=== PATIENT | male | born 1960 | race Two or more races ===

== ENCOUNTER 2019-03-21 23:59 | Inpatient (IN) | payer OTHER ==
[~2019-03-21] VITALS: Ht 165.1 cm; Wt 73.9 kg
[2019-03-22] VITALS (11 sets, daily range): BP systolic 115–185; BP diastolic 51–82
--- NOTE | 2019-03-22 00:36 | Emergency Room Report ---
History of Present Illness General Chief Complaint: Overdose Source: Patient (Jakob Mack MD) Present Illness HPI This is a 58-year-old male with a history of high blood pressure, diabetes, renal failure on hemodialysis. He presents with chief complaint of suicidal and overdose. He said that his phone depressed because he has some marital problem with his . Around 2 PM, 10 hours prior to arrival, he took 20 tablets of rat poison. He went to his sister house around 5 PM and did not see anything to her until almost 11 PM. Family didn't call 911. Patient feeling depressed. Denies any alcohol drugs. Denies any nausea vomiting. Denies any bleeding. No pain. Never done this before. (Jakob Mack MD) Allergies: Coded Allergies: No Known Allergies (Unverified , 03/22/19) Patient History Past Medical History: see triage record, old chart reviewed, DM, HTN, dialysis Past Surgical History: other Pertinent Family History: none Social History: Denies: smoking Immunizations: other Reviewed Nursing Documentation: PMH: Agreed; PSxH: Agreed (Jakob Mack MD) Nursing Documentation-PMH Past Medical History: No History, Except For Hx Hypertension: Yes Hx Diabetes: Yes (Jakob Mack MD) Review of Systems Eye: Denies: eye pain, blurred vision ENT: Denies: ear pain, nose congestion, throat swelling Respiratory: Denies: cough, shortness of breath Cardiovascular: Denies: chest pain, palpitations Gastrointestinal: Denies: abdominal pain, diarrhea, nausea, vomiting Musculoskeletal: Denies: back pain, joint pain Skin: Denies: rash Psychiatric: Reports: depressed feelings Neurological: Denies: headache, numbness Endocrine: Denies: increased thirst, increased urine Hematologic/Lymphatic: Denies: easy bruising All Other Systems: negative except mentioned in HPI (Jakob Mack MD) Physical Exam Vital Signs Date Time Temp Pulse Resp B/P (MAP) Pulse Ox O2 Delivery O2 Flow Rate FiO2 03/21/19 23:57 98.2 92 18 196/97 (130) 98 Room Air vitals with high blood pressure Sp02 EP Interpretation: reviewed, normal General Appearance: well appearing, no apparent distress, alert Head: normocephalic, atraumatic Eyes: bilateral eye PERRL, bilateral eye EOMI ENT: hearing grossly normal, normal pharynx Neck: full range of motion, supple, no meningismus Respiratory: chest non-tender, lungs clear, normal breath sounds, other - Dialysis catheter on right upper chest Cardiovascular #1: regular rate, rhythm, no murmur Gastrointestinal: normal bowel sounds, non tender, no mass, no organomegaly, no bruit, non-distended Musculoskeletal: back normal, gait/station normal, normal range of motion Psychiatric: depressed affect Skin: warm/dry (Jakob Mack MD) Medical Decision Making Diagnostic Impression: Primary Impression: Drug overdose Qualified Codes: T50.902A - Poisoning by unspecified drugs, medicaments and biological substances, intentional self-harm, initial encounter Additional Impressions: Suicidal intent Hypertension Qualified Codes: I10 - Essential (primary) hypertension ER Course Pt presents with OD on rat poison. 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 no e/o hypocoaguable state. BP was high initially but normalized after meds given. he is resting comfortably. he is medically cleared for psych evaluation. Lab Results Impression labs with chronic renal failure. Potassium unremarkable. (Jakob Mack MD) ER Course Please see above note. Discussed with Dr. Hoff - patient presented. He is contacting Dr. Onofre. Contacted Dr. Garcia for consultation. CXR as below. Patient NAD. (Raphael Xiao MD) EKG Diagnostic Results Rate: normal Rhythm: NSR ST Segments: no acute changes ASA given to the pt in ED: No (Jakob Mack MD) Rhythm Strip Diag. Results EP Interpretation: yes Rate: 84 Rhythm: NSR, no PVC's, no ectopy (Jakob Mack MD) EP Interpretation: yes Rhythm: NSR, no PVC's, no ectopy (Raphael Xiao MD) Chest X-Ray Diagnostic Results Chest X-Ray Diagnostic Results : Chest X-Ray Ordered: Yes # of Views/Limited/Complete: 1 View Indication: Other EP Interpretation: Yes Interpretation: no consolidation, no effusion, no pneumothorax, other - vascath R, inc cor, mild congestion Impression: Other Electronically Signed by: Electronically signed by Raphael Xiao MD (Raphael Xiao MD) Last Vital Signs Date Time Temp Pulse Resp B/P (MAP) Pulse Ox O2 Delivery O2 Flow Rate FiO2 03/21/19 23:57 98.2 92 18 196/97 (130) 98 Room Air Status: improved (Jakob Mack MD) Disposition: ADMITTED INPATIENT Condition: Serious Jakob Mack MD Mar 22, 2019 00:36 Raphael Xiao MD Mar 22, 2019 12:02
[2019-03-22 00:47] LABS: BASOPHILS % (AUTO) 0.7 % (0.0-2.0); EOSINOPHILS % (AUTO) 2.9 % (0.0-3.0); HEMATOCRIT 38.8 % (42.0-52.0); HEMOGLOBIN 12.6 G/DL (14.2-18.0); LYMPHOCYTES % (AUTO) 13.9 % (20.0-45.0); MEAN CORPUSCULAR VOLUME 90 FL (80-99); MONOCYTES % (AUTO) 6.8 % (1.0-10.0); NEUTROPHILS % (AUTO) 75.7 % (45.0-75.0); PLATELET COUNT 186 K/UL (150-450); RED CELL DISTRIBUTION WIDTH 13.7 % (11.6-14.8); WHITE BLOOD COUNT 9.1 K/UL (4.8-10.8)
[2019-03-22 00:49] LABS: ANION GAP 13 mmol/L (5-15); BLOOD UREA NITROGEN 89 mg/dL (7-18); CALCIUM 8.4 MG/DL (8.5-10.1); CARBON DIOXIDE 22 MMOL/L (21-32); CHLORIDE 100 MMOL/L (98-107); CREATININE 9.8 MG/DL (0.55-1.30); SODIUM 135 MMOL/L (136-145)
[2019-03-22 00:53] LABS: ALANINE AMINOTRANSFERASE 28 U/L (12-78); ALBUMIN 3.7 G/DL (3.4-5.0); ALKALINE PHOSPHATASE 138 U/L (46-116); ASPARTATE AMINO TRANSFERASE 21 U/L (15-37); BILIRUBIN,TOTAL 0.6 MG/DL (0.2-1.0)
[2019-03-22 01:28] LABS: APPEARANCE,URINE CLEAR; BILIRUBIN, URINE NEGATIVE (NEGATIVE); COLOR,URINE PALE YELLOW; GLUCOSE, URINE (UA) 2+ (NEGATIVE); KETONES,URINE NEGATIVE (NEGATIVE); LEUKOCYTE ESTERASE ,URINE NEGATIVE (NEGATIVE); NITRITE,URINE NEGATIVE (NEGATIVE); PH,URINE 5 (4.5-8.0); PROTEIN,URINE 4+ (NEGATIVE); UROBILINOGEN,URINE NORMAL MG/DL (0.0-1.0)
--- NOTE | 2019-03-22 10:52 | Diagnostic Imaging Report ---
EXAM: XR Chest, 1 View CLINICAL HISTORY: ALOC TECHNIQUE: Frontal view of the chest. COMPARISON: No relevant prior studies available. FINDINGS: Lungs: Unremarkable. The lungs appear clear. No focal consolidation. Pleural space: Unremarkable. The costophrenic angles are sharp. No visible pneumothorax. Heart: Unremarkable. No cardiomegaly. Mediastinum: Unremarkable. Bones/joints: Unremarkable. Tubes, lines and devices: Right subclavian-approach dialysis catheter with the tip in the region of the SVC. Telemetry leads overlie the thorax. IMPRESSION: No acute findings.
--- NOTE | 2019-03-22 14:14 | History & Physical ---
History and Physical History & Physicial History and Physical HPI Patient is a 58-year-old male with a history of high blood pressure, diabetes, chronic renal failure on hemodialysis. He presents with chief complaint of suicidal ideation and overdose. Had felt depresse, 10 hours prior to arrival, he took 20 tablets of rat poison. Denies any alcohol drugs. Denies any nausea vomiting. Denies any bleeding. No pain. Never done this before. Allergies: No Known Allergies Past Medical History: Hypertension, Diabetes, Chronic renal failure on hemodialysis Social History: Denies: smoking Immunizations: other ROS: Negative aside from above Physical Exam Vital Signs Noted Date Time Temp Pulse Resp B/P (MAP) Pulse Ox O2 Delivery O2 Flow Rate FiO2 03/21/19 23:57 98.2 92 18 196/97 (130) 98 Room Air General Appearance: well appearing, no apparent distress, alert Head: normocephalic, atraumatic Eyes: bilateral eye PERRL, bilateral eye EOMI ENT: hearing grossly normal, normal pharynx Neck: full range of motion, supple, no meningismus Respiratory: chest non-tender, lungs clear, normal breath sounds, other - Dialysis catheter on right upper chest Cardiovascular: HS1, HS2, regular rate, rhythm, no murmur Gastrointestinal: normal bowel sounds, non tender, no mass, no organomegaly, no bruit, non-distended Musculoskeletal: back normal, gait/station normal, normal range of motion Psychiatric: depressed affect Skin: warm/dry Impression: Drug overdose - apparently took rat poison Suicidal ideation Hypertension Diabetes Chronic renal failure on hemodialysis Plan: Admit Telemetry Sitter Bed rest Psych evaluation. 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
[2019-03-22] MEDS ORDERED: HydrALAZINE 25mg tab ORAL PRN (14:15)
[2019-03-22] MEDS ORDERED: Activated Charcoal 50gm/240ml Btl ORAL ONE (15:00)
[2019-03-22] MEDS ORDERED: Sorbitol Solution UD 30ml ORAL SCH (17:30)
[2019-03-22] MEDS: NovoLOG Insulin Flexpen SUBQ SCH ×2 (17:42→20:52)
[2019-03-22] MEDS: Heparin 5000 units/ml inj SUBQ SCH (20:53)
--- NOTE | 2019-03-22 22:15 | Consultation ---
DATE OF CONSULTATION: 03/22/2019 NEPHROLOGY CONSULTATION CONSULTING PHYSICIAN: Jessica Onofre M.D. ATTENDING PHYSICIAN: Daljit Umanzor M.D. REASON FOR CONSULTATION: This is a dialysis patient. HISTORY OF PRESENT ILLNESS: This is a 58-year-old male who is on dialysis every Saturday, , and Saturday. The patient dialyzes in the [facility] unit on [place]. His last dialysis was last . He missed his dialysis yesterday. The patient has a history of depression. Apparently, the patient overdosed on an unknown poison. He took about 20 tablets of the poison. That happened yesterday at about 5 p.m. The patient denies any symptoms. PAST MEDICAL HISTORY: 1. End-stage renal failure secondary to diabetic nephropathy. 2. Type 2 diabetes mellitus. 3. Hypertensive cardiovascular disease. 4. Depression. MEDICATIONS: Currently unknown. ALLERGIES: No known allergies. FAMILY HISTORY: Unremarkable. REVIEW OF SYSTEMS: HEENT: Hearing and eyesight are normal. ENDOCRINE: Significant for type 2 diabetes mellitus. RESPIRATORY: Denies shortness of breath, cough, or hemoptysis. CARDIAC: He denies chest pain or palpitations. GASTROINTESTINAL: No history of hematochezia, melena, hematemesis, diarrhea, or constipation. GENITOURINARY: He denies dysuria, frequency, urgency, or hematuria. NEUROLOGIC: No history of stroke, syncope, or Parkinson disease. PSYCHIATRIC: Significant for history of depression. PHYSICAL EXAMINATION: GENERAL: This is an elderly male who is in no acute distress. VITAL SIGNS: Blood pressure 156/78, pulse 90 and regular, respirations 15, and temperature 98, oral. HEENT: The head is normocephalic and atraumatic. Pupils are equal, round, and reactive to light and accommodation consensually. NECK: Supple. He has right internal jugular PermCath. LUNGS: Clear to auscultation and percussion. HEART: Regular rate and rhythm without rubs, murmurs, or gallops. ABDOMEN: Soft and nontender. Bowel sounds were active. EXTREMITIES: No clubbing, cyanosis, or edema. NEUROLOGICAL: He is alert and oriented x4. Cranial nerves II through XII intact. LABORATORY AND ANCILLARY DATA: Chemistries, sodium 135, potassium 5, BUN 89, and creatinine 9.8. LFTs within normal limits except alkaline phosphatase of 138. INR 1. CBC, hemoglobin 12.6, otherwise within normal limits. Chest x-ray, no acute disease. ASSESSMENT: 1. End-stage renal failure secondary to diabetic nephropathy. 2. Type 2 diabetes mellitus. 3. Hypertensive cardiovascular disease. 4. Depression. 5. Overdose of Rat poison, the nature of which is unknown, rule out dicoumarol poisoning. PLAN: 1. Hemodialysis today, non-urgent. The patient missed his dialysis. 2. Monitor the patient's coagulation function as he may be bound to side effects from Rat poison dicoumarol. Jessica Onofre M.D. DR: CARLOS JOB#: [id number] CC: EDWIN
[2019-03-23] VITALS: BP 120/63
[2019-03-23 04:00] VITALS: BP 142/65
[2019-03-23] MEDS: NovoLOG Insulin Flexpen SUBQ SCH ×4 (06:07→20:30)
[2019-03-23 06:51] LABS: EOSINOPHILS % (AUTO) 6.8 % (0.0-3.0); HEMATOCRIT 35.3 % (42.0-52.0); HEMOGLOBIN 11.4 G/DL (14.2-18.0); LYMPHOCYTES % (AUTO) 20.6 % (20.0-45.0); MEAN CORPUSCULAR VOLUME 91 FL (80-99); MONOCYTES % (AUTO) 6.8 % (1.0-10.0); NEUTROPHILS % (AUTO) 64.9 % (45.0-75.0); PLATELET COUNT 170 K/UL (150-450); RED BLOOD COUNT 3.88 M/UL (4.70-6.10); RED CELL DISTRIBUTION WIDTH 13.9 % (11.6-14.8); WHITE BLOOD COUNT 6.7 K/UL (4.8-10.8)
[2019-03-23 07:12] LABS: ANION GAP 10 mmol/L (5-15); BLOOD UREA NITROGEN 71 mg/dL (7-18); CALCIUM 8.2 MG/DL (8.5-10.1); CARBON DIOXIDE 26 MMOL/L (21-32); CHLORIDE 98 MMOL/L (98-107); CREATININE 7.9 MG/DL (0.55-1.30); SODIUM 134 MMOL/L (136-145)
[2019-03-23 08:00] VITALS: BP 150/79
[2019-03-23] MEDS: Heparin 5000 units/ml inj SUBQ SCH ×2 (08:31→20:29)
--- NOTE | 2019-03-23 10:17 | Nephrology Progress Note ---
Assessment/Plan Plan ESRD - HD today OD - "Rat Poison" m/p not dicumarol. INR flat. Subjective Subjective No new c/o Objective Objective Last 24 Hour Vital Signs Date Time Temp Pulse Resp B/P (MAP) Pulse Ox O2 Delivery O2 Flow Rate FiO2 03/23/19 09:00 Room Air 03/23/19 08:30 82 150/79 03/23/19 08:00 97.9 82 18 150/79 (102) 98 03/23/19 04:00 98.6 80 18 142/65 (90) 100 03/23/19 03:57 82 03/23/19 00:00 77 03/23/19 00:00 98.2 82 16 120/63 (82) 97 03/22/19 21:00 Room Air 03/22/19 20:00 97.9 83 18 143/73 (96) 96 03/22/19 16:00 74 03/22/19 16:00 98.0 79 21 144/73 (96) 99 79 03/22/19 12:51 Room Air 03/22/19 12:45 96.8 70 21 134/76 (95) 97 70 03/22/19 12:40 73 03/22/19 12:24 98.2 87 18 131/78 99 Room Air 03/22/19 10:30 98.0 90 15 156/78 98 Room Air Intake and Output 03/22/19 03/23/19 18:59 06:59 Intake Total 200 ml 240 ml Output Total 100 ml 2600 ml Balance 100 ml -2360 ml Intake Oral 240 ml Other 200 ml Output Urine Total 100 ml Hemodialysis UF 2600 ml Laboratory Tests 03/23/19 05:05: White Blood Count 6.7, Red Blood Count 3.88L, Hemoglobin 11.4L, Hematocrit 35.3L , Mean Corpuscular Volume 91, Mean Corpuscular Hemoglobin 29.3, Mean Corpuscular Hemoglobin Concent 32.2, Red Cell Distribution Width 13.9, Platelet Count 170, Mean Platelet Volume 6.8, Neutrophils (%) (Auto) 64.9, Lymphocytes (% ) (Auto) 20.6, Monocytes (%) (Auto) 6.8, Eosinophils (%) (Auto) 6.8H, Basophils (%) (Auto) 1.0, Prothrombin Time 10.2, Prothromb Time International Ratio 1.0, Sodium Level 134L, Potassium Level 5.0, Chloride Level 98, Carbon Dioxide Level 26, Anion Gap 10, Blood Urea Nitrogen 71H, Creatinine 7.9H, Estimat Glomerular Filtration Rate 7.1, Glucose Level 112H, Calcium Level 8.2L Height (Feet): 5 Height (Inches): 5.00 Weight (Pounds): 168 Objective CV RR Lungs CTA Abd SNT. BS + E No CCE Jessica Onofre MD Mar 23, 2019 10:17
--- NOTE | 2019-03-23 10:27 | Nephrology Progress Note ---
Assessment/Plan Plan ESRD - HD done yesterday. UF 2.6 L. OD - "Rat Poison" m/p not dicumarol. INR flat. Subjective Subjective No new c/o Objective Objective Last 24 Hour Vital Signs Date Time Temp Pulse Resp B/P (MAP) Pulse Ox O2 Delivery O2 Flow Rate FiO2 03/23/19 09:00 Room Air 03/23/19 08:30 82 150/79 03/23/19 08:00 97.9 82 18 150/79 (102) 98 03/23/19 08:00 82 03/23/19 04:00 98.6 80 18 142/65 (90) 100 03/23/19 03:57 82 03/23/19 00:00 77 03/23/19 00:00 98.2 82 16 120/63 (82) 97 03/22/19 21:00 Room Air 03/22/19 20:00 97.9 83 18 143/73 (96) 96 03/22/19 16:00 74 03/22/19 16:00 98.0 79 21 144/73 (96) 99 79 03/22/19 12:51 Room Air 03/22/19 12:45 96.8 70 21 134/76 (95) 97 70 03/22/19 12:40 73 03/22/19 12:24 98.2 87 18 131/78 99 Room Air 03/22/19 10:30 98.0 90 15 156/78 98 Room Air Intake and Output 03/22/19 03/23/19 18:59 06:59 Intake Total 200 ml 240 ml Output Total 100 ml 2600 ml Balance 100 ml -2360 ml Intake Oral 240 ml Other 200 ml Output Urine Total 100 ml Hemodialysis UF 2600 ml Laboratory Tests 03/23/19 05:05: White Blood Count 6.7, Red Blood Count 3.88L, Hemoglobin 11.4L, Hematocrit 35.3L , Mean Corpuscular Volume 91, Mean Corpuscular Hemoglobin 29.3, Mean Corpuscular Hemoglobin Concent 32.2, Red Cell Distribution Width 13.9, Platelet Count 170, Mean Platelet Volume 6.8, Neutrophils (%) (Auto) 64.9, Lymphocytes (% ) (Auto) 20.6, Monocytes (%) (Auto) 6.8, Eosinophils (%) (Auto) 6.8H, Basophils (%) (Auto) 1.0, Prothrombin Time 10.2, Prothromb Time International Ratio 1.0, Sodium Level 134L, Potassium Level 5.0, Chloride Level 98, Carbon Dioxide Level 26, Anion Gap 10, Blood Urea Nitrogen 71H, Creatinine 7.9H, Estimat Glomerular Filtration Rate 7.1, Glucose Level 112H, Calcium Level 8.2L, Hepatitis A IgM Antibody [Pending], Hepatitis B Surface Antigen [Pending], Hepatitis B Core IgM Antibody [Pending], Hepatitis C Antibody [Pending] Height (Feet): 5 Height (Inches): 5.00 Weight (Pounds): 168 Objective CV RR Lungs CTA Abd SNT. BS + E No CCE Jessica Onofre MD Mar 23, 2019 10:26
[2019-03-23 12:00] VITALS: BP 132/60
[2019-03-23] MEDS ORDERED: Heparin Sod 1000 units/ml 10ml IV PRN (12:00)
[2019-03-23 16:00] VITALS: BP 121/66
[2019-03-23 20:00] VITALS: BP 126/67
--- NOTE | 2019-03-23 22:29 | Pulmonology Progress Note ---
Assessment/Plan Assessment/Plan Pulmonary Progress Note HPI Patient is a 58-year-old male with a history of high blood pressure, diabetes, chronic renal failure on hemodialysis. He presents with chief complaint of suicidal ideation and overdose. Had felt depresse, 10 hours prior to arrival, he took 20 tablets of rat poison. Denies any alcohol drugs. Denies any nausea vomiting. Denies any bleeding. No pain. Never done this before. No new complaints Allergies: No Known Allergies Past Medical History: Hypertension, Diabetes, Chronic renal failure on hemodialysis Social History: Denies: smoking Immunizations: other ROS: Negative aside from above Physical Exam Vital Signs Noted General Appearance: well appearing, no apparent distress, alert Head: normocephalic, atraumatic Eyes: bilateral eye PERRL, bilateral eye EOMI ENT: hearing grossly normal, normal pharynx Neck: full range of motion, supple, no meningismus Respiratory: chest non-tender, lungs clear, normal breath sounds, other - Dialysis catheter on right upper chest Cardiovascular: HS1, HS2, regular rate, rhythm, no murmur Gastrointestinal: normal bowel sounds, non tender, no mass, no organomegaly, no bruit, non-distended Musculoskeletal: back normal, gait/station normal, normal range of motion Psychiatric: depressed affect Skin: warm/dry Impression: Drug overdose - apparently took rat poison Suicidal ideation Hypertension Diabetes Chronic renal failure on hemodialysis Plan: Admit Telemetry Sitter Bed rest Psych evaluation. 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 EKG: Rate: normal Rhythm: NSR ST Segments: no acute changes Chest X-Ray: no consolidation, no effusion, no pneumothorax, other - vasc cath R , inc cor, mild congestion Subjective ROS Limited/Unobtainable: No Allergies: Coded Allergies: No Known Allergies (Unverified , 03/22/19) Objective Last 24 Hour Vital Signs Date Time Temp Pulse Resp B/P (MAP) Pulse Ox O2 Delivery O2 Flow Rate FiO2 03/23/19 20:00 74 03/23/19 20:00 97.9 76 20 126/67 (86) 97 03/23/19 16:00 99.0 78 20 121/66 (84) 97 03/23/19 16:00 77 03/23/19 12:00 98.7 79 20 132/60 (84) 97 03/23/19 12:00 78 03/23/19 09:00 Room Air 03/23/19 08:30 82 150/79 03/23/19 08:00 97.9 82 18 150/79 (102) 98 03/23/19 08:00 82 03/23/19 04:00 98.6 80 18 142/65 (90) 100 03/23/19 03:57 82 03/23/19 00:00 77 03/23/19 00:00 98.2 82 16 120/63 (82) 97 Intake and Output 03/22/19 03/23/19 19:00 07:00 Intake Total 200 ml 240 ml Output Total 100 ml 2600 ml Balance 100 ml -2360 ml Intake Oral 240 ml Other 200 ml Output Urine Total 100 ml Hemodialysis UF 2600 ml Laboratory Tests 03/23/19 05:05: White Blood Count 6.7, Red Blood Count 3.88L, Hemoglobin 11.4L, Hematocrit 35.3L , Mean Corpuscular Volume 91, Mean Corpuscular Hemoglobin 29.3, Mean Corpuscular Hemoglobin Concent 32.2, Red Cell Distribution Width 13.9, Platelet Count 170, Mean Platelet Volume 6.8, Neutrophils (%) (Auto) 64.9, Lymphocytes (% ) (Auto) 20.6, Monocytes (%) (Auto) 6.8, Eosinophils (%) (Auto) 6.8H, Basophils (%) (Auto) 1.0, Prothrombin Time 10.2, Prothromb Time International Ratio 1.0, Sodium Level 134L, Potassium Level 5.0, Chloride Level 98, Carbon Dioxide Level 26, Anion Gap 10, Blood Urea Nitrogen 71H, Creatinine 7.9H, Estimat Glomerular Filtration Rate 7.1, Glucose Level 112H, Calcium Level 8.2L, Hepatitis A IgM Antibody [Pending], Hepatitis B Surface Antigen [Pending], Hepatitis B Core IgM Antibody [Pending], Hepatitis C Antibody [Pending] Current Medications Medications (Trade) Dose Ordered Sig/[place] Route PRN Reason Start Time Stop Time Status Last Admin Dose Admin Acetaminophen (Tylenol) 650 mg Q6H PRN ORAL Mild Pain/Temp > 100.5 03/22/19 14:15 04/21/19 14:14 Amlodipine Besylate (Norvasc) 10 mg DAILY ORAL 03/23/19 09:00 04/22/19 08:59 03/23/19 08:30 Dextrose (Dextrose 50%) 25 ml Q30M PRN IV Hypoglycemia 03/22/19 14:15 04/21/19 14:14 Dextrose (Dextrose 50%) 50 ml Q30M PRN IV Hypoglycemia 03/22/19 14:15 04/21/19 14:14 Diphenhydramine HCl (Benadryl) 25 mg Q6H PRN ORAL Itching 03/22/19 14:15 04/21/19 14:14 Escitalopram Oxalate (Lexapro) 10 mg DAILY ORAL 03/24/19 09:00 04/23/19 08:59 Heparin Sodium (Porcine) (Heparin 5000 units/ml) 5,000 units EVERY 12 HOURS SUBQ 03/22/19 21:00 04/21/19 20:59 03/23/19 20:29 Heparin Sodium (Porcine) (Heparin Sod 1000 units/ml 10ml) 2,000 unit ONCE PRN IV dialysis 03/23/19 12:00 03/23/19 23:59 Heparin Sodium (Porcine) (Heparin Sod 1000 units/ml 10ml) 2,000 unit ONCE PRN IV HD 03/24/19 06:00 03/24/19 23:59 Hydralazine HCl (Apresoline) 25 mg Q6H PRN ORAL SBP > 180mmHg 03/22/19 14:15 04/21/19 14:14 Insulin Aspart (NovoLOG) BEFORE MEALS AND HS SUBQ 03/22/19 16:30 04/21/19 16:29 03/23/19 20:30 Ondansetron HCl (Zofran) 4 mg Q6H PRN IVP Nausea & Vomiting 03/22/19 14:15 04/21/19 14:14 Pantoprazole (Protonix) 40 mg DAILY ORAL 03/23/19 09:00 04/22/19 08:59 03/23/19 08:29 Quetiapine Fumarate (SEROquel) 25 mg EVERY 6 HOURS ORAL 03/23/19 20:30 04/22/19 20:29 03/23/19 20:36 Sodium Chloride 1,000 ml @ 500 mls/hr Q2H PRN IVLG sbp<90 during hd 03/23/19 11:52 03/23/19 23:59 Sodium Chloride 1,000 ml @ 500 mls/hr Q2H PRN IVLG sbp<90 during hd 03/24/19 06:00 03/24/19 23:59 Raphael Hoff MD Mar 23, 2019 22:29
[2019-03-24] VITALS: BP 135/74
--- NOTE | 2019-03-24 02:45 | Consultation ---
DATE OF CONSULTATION: 03/23/2019 HISTORY OF PRESENT ILLNESS: This is a 58-year-old male with a history of suicidal ideation status post overdose on several pieces of tablets of rat poison. The patient presents with severe depressed mood, anhedonia, worthlessness, hopelessness. The depression is situational and is in the context of recent with his . Apparently, the has been cheating with another man on him. They have 6 children. The told him that she does not love him and therefore he is currently homeless. He does not want to live with any family members due to the pride he has. PAST MEDICAL HISTORY: As above. ALLERGIES: No known drug allergies. PSYCHIATRIC HISTORY: He denies any psychiatric hospitalization. Denies any suicide attempt in the past. He is currently on no psychotropic medication. He agreed to take medication. MENTAL STATUS EXAMINATION: The patient is alert and oriented x4. The [place]-speaking nurse, Maria Isabel, assisted me with the translation. Mood is depressed. Affect is constricted. Congruent with mood. Thought process is concrete. Thought content, no suicidal or homicidal ideation. The patient denies any auditory or visual hallucinations. No delusions. Insight and judgment is fair. ASSESSMENT: [place] I Major depressive disorder. [place] II Deferred. [place] III As above. [place] IV Moderate. [place] V 50. PLAN: 1. The patient will be started on Lexapro 10 mg in the morning and Seroquel 25 mg at bedtime. 2. Provide the patient with reality orientation and supportive therapy. The patient is not an imminent danger to self or others. The patient may be discharged after medically cleared. Sanford Garcia M.D. DR: JOURDAN JOB#: [id number] CC:
[2019-03-24 04:00] VITALS: BP 146/73
[2019-03-24] MEDS ORDERED: Heparin Sod 1000 units/ml 10ml IV PRN (06:00)
[2019-03-24 06:23] LABS: EOSINOPHILS % (AUTO) 7.6 % (0.0-3.0); HEMATOCRIT 33.6 % (42.0-52.0); HEMOGLOBIN 10.9 G/DL (14.2-18.0); LYMPHOCYTES % (AUTO) 37.3 % (20.0-45.0); MEAN CORPUSCULAR VOLUME 90 FL (80-99); MONOCYTES % (AUTO) 8.2 % (1.0-10.0); NEUTROPHILS % (AUTO) 45.9 % (45.0-75.0); PLATELET COUNT 160 K/UL (150-450); RED BLOOD COUNT 3.73 M/UL (4.70-6.10); RED CELL DISTRIBUTION WIDTH 13.6 % (11.6-14.8); WHITE BLOOD COUNT 6.3 K/UL (4.8-10.8)
[2019-03-24] MEDS: NovoLOG Insulin Flexpen SUBQ SCH ×4 (06:30→20:48)
[2019-03-24 06:34] LABS: INR 0.9 (0.9-1.1)
[2019-03-24 06:41] LABS: ANION GAP 14 mmol/L (5-15); BLOOD UREA NITROGEN 91 mg/dL (7-18); CALCIUM 7.9 MG/DL (8.5-10.1); CARBON DIOXIDE 21 MMOL/L (21-32); CHLORIDE 99 MMOL/L (98-107); CREATININE 10.1 MG/DL (0.55-1.30); POTASSIUM 5.2 MMOL/L (3.5-5.1); SODIUM 134 MMOL/L (136-145)
[2019-03-24 08:00] VITALS: BP 130/62
--- NOTE | 2019-03-24 08:00 | General Progress Note ---
Assessment/Plan Assessment/Plan: Drug overdose - apparently took rat poison Suicidal ideation Hypertension Diabetes Chronic renal failure on hemodialysis PLAN care noted HD monitor for change ?psych clearance impression, plan, and exam edited and reviewed in detail care discussed with RN Subjective Allergies: Coded Allergies: No Known Allergies (Unverified , 03/22/19) Subjective care noted and reviewed no distress Objective Last 24 Hour Vital Signs Date Time Temp Pulse Resp B/P (MAP) Pulse Ox O2 Delivery O2 Flow Rate FiO2 03/24/19 04:00 98.0 74 20 146/73 (97) 96 03/24/19 04:00 74 03/24/19 00:00 98.0 73 20 135/74 (94) 98 03/24/19 00:00 72 03/23/19 21:00 Room Air 03/23/19 20:00 74 03/23/19 20:00 97.9 76 20 126/67 (86) 97 03/23/19 16:00 99.0 78 20 121/66 (84) 97 03/23/19 16:00 77 03/23/19 12:00 98.7 79 20 132/60 (84) 97 03/23/19 12:00 78 03/23/19 09:00 Room Air 03/23/19 08:30 82 150/79 03/23/19 08:00 97.9 82 18 150/79 (102) 98 03/23/19 08:00 82 Intake and Output 03/23/19 03/24/19 19:00 07:00 Intake Total 340 ml Output Total 150 ml 300 ml Balance 190 ml -300 ml Intake Oral 340 ml Output Urine Total 150 ml 300 ml Laboratory Tests 03/24/19 05:37: White Blood Count 6.3, Red Blood Count 3.73L, Hemoglobin 10.9L, Hematocrit 33.6L , Mean Corpuscular Volume 90, Mean Corpuscular Hemoglobin 29.3, Mean Corpuscular Hemoglobin Concent 32.5, Red Cell Distribution Width 13.6, Platelet Count 160, Mean Platelet Volume 7.1, Neutrophils (%) (Auto) 45.9, Lymphocytes (% ) (Auto) 37.3, Monocytes (%) (Auto) 8.2, Eosinophils (%) (Auto) 7.6H, Basophils (%) (Auto) 1.0, Prothrombin Time 10.1, Prothromb Time International Ratio 0.9, Sodium Level 134L, Potassium Level 5.2H, Chloride Level 99, Carbon Dioxide Level 21, Anion Gap 14, Blood Urea Nitrogen 91H, Creatinine 10.1H, Estimat Glomerular Filtration Rate 5.3, Glucose Level 99, Calcium Level 7.9L Height (Feet): 5 Height (Inches): 5.00 Weight (Pounds): 169 Objective WDWN NAD clear breath sounds bilaterally without rhonchi or wheeze [id number] without MRG NABS nontender no HSM no CCE nonfocal aDljit Umanzor MD Mar 24, 2019 08:00
[2019-03-24] MEDS: Heparin 5000 units/ml inj SUBQ SCH ×2 (09:09→20:48)
--- NOTE | 2019-03-24 09:29 | Nephrology Progress Note ---
Assessment/Plan Plan ESRD - HD done Saturday UF 2.6 L. OD - "Rat Poison" m/p not dicumarol. INR flat. HD TTS Subjective Subjective No new c/o Objective Objective Last 24 Hour Vital Signs Date Time Temp Pulse Resp B/P (MAP) Pulse Ox O2 Delivery O2 Flow Rate FiO2 03/24/19 09:08 71 130/62 03/24/19 08:00 71 03/24/19 08:00 97.9 70 20 130/62 (84) 96 03/24/19 04:00 98.0 74 20 146/73 (97) 96 03/24/19 04:00 74 03/24/19 00:00 98.0 73 20 135/74 (94) 98 03/24/19 00:00 72 03/23/19 21:00 Room Air 03/23/19 20:00 74 03/23/19 20:00 97.9 76 20 126/67 (86) 97 03/23/19 16:00 99.0 78 20 121/66 (84) 97 03/23/19 16:00 77 03/23/19 12:00 98.7 79 20 132/60 (84) 97 03/23/19 12:00 78 Intake and Output 03/23/19 03/24/19 18:59 06:59 Intake Total 340 ml Output Total 150 ml 300 ml Balance 190 ml -300 ml Intake Oral 340 ml Output Urine Total 150 ml 300 ml Laboratory Tests 03/24/19 05:37: White Blood Count 6.3, Red Blood Count 3.73L, Hemoglobin 10.9L, Hematocrit 33.6L , Mean Corpuscular Volume 90, Mean Corpuscular Hemoglobin 29.3, Mean Corpuscular Hemoglobin Concent 32.5, Red Cell Distribution Width 13.6, Platelet Count 160, Mean Platelet Volume 7.1, Neutrophils (%) (Auto) 45.9, Lymphocytes (% ) (Auto) 37.3, Monocytes (%) (Auto) 8.2, Eosinophils (%) (Auto) 7.6H, Basophils (%) (Auto) 1.0, Prothrombin Time 10.1, Prothromb Time International Ratio 0.9, Sodium Level 134L, Potassium Level 5.2H, Chloride Level 99, Carbon Dioxide Level 21, Anion Gap 14, Blood Urea Nitrogen 91H, Creatinine 10.1H, Estimat Glomerular Filtration Rate 5.3, Glucose Level 99, Calcium Level 7.9L Height (Feet): 5 Height (Inches): 5.00 Weight (Pounds): 169 Objective CV RR Lungs CTA Abd SNT. BS + E No CCE Jessica Onofre MD Mar 24, 2019 09:29
[2019-03-24 12:00] VITALS: BP 129/69
[2019-03-24 16:00] VITALS: BP 132/71
[2019-03-24 16:54] LABS: HEMATOCRIT 31.9 % (42.0-52.0); HEMOGLOBIN 10.2 G/DL (14.2-18.0); MEAN CORPUSCULAR VOLUME 89 FL (80-99); PLATELET COUNT 156 K/UL (150-450); RED BLOOD COUNT 3.59 M/UL (4.70-6.10); WHITE BLOOD COUNT 6.1 K/UL (4.8-10.8)
[2019-03-24 17:00] LABS: ANION GAP 12 mmol/L (5-15); BLOOD UREA NITROGEN 101 mg/dL (7-18); CALCIUM 7.3 MG/DL (8.5-10.1); CARBON DIOXIDE 22 MMOL/L (21-32); CHLORIDE 97 MMOL/L (98-107); CREATININE 10.8 MG/DL (0.55-1.30); SODIUM 131 MMOL/L (136-145)
[2019-03-24 17:02] LABS: POTASSIUM 6.4 MMOL/L (3.5-5.1)
[2019-03-24 20:00] VITALS: BP 158/73
[2019-03-24 20:11] LABS: ANION GAP 7 mmol/L (5-15); BLOOD UREA NITROGEN 57 mg/dL (7-18); CARBON DIOXIDE 28 MMOL/L (21-32); CHLORIDE 99 MMOL/L (98-107); POTASSIUM 4.2 MMOL/L (3.5-5.1); SODIUM 133 MMOL/L (136-145)
--- NOTE | 2019-03-24 22:15 | Progress Note ---
DATE: 03/24/2019 SUBJECTIVE: The patient is doing well. Much improved. Has depressed mood, low energy. No suicidal or homicidal ideation. MENTAL STATUS EXAMINATION: Alert and oriented x4. Mood is dysphoric. Affect is constricted, congruent with mood. Thought process is concrete. Thought content, no suicidal or homicidal ideations. ASSESSMENT: Major depressive disorder, anxiety disorder. PLAN: We will continue current medication. Provide the patient with reality orientation and supportive therapy. Sanford Garcia M.D. DR: EVANGELISTA JOB#: [id number] CC:
[2019-03-25] VITALS: BP 157/79
[2019-03-25 04:00] VITALS: BP 160/68
[2019-03-25] MEDS: NovoLOG Insulin Flexpen SUBQ SCH ×2 (06:21→12:13)
[2019-03-25 08:00] VITALS: BP 129/58
[2019-03-25 08:36] LABS: BASOPHILS % (AUTO) 0.9 % (0.0-2.0); EOSINOPHILS % (AUTO) 7.7 % (0.0-3.0); HEMATOCRIT 33.7 % (42.0-52.0); HEMOGLOBIN 10.9 G/DL (14.2-18.0); LYMPHOCYTES % (AUTO) 31.6 % (20.0-45.0); MEAN CORPUSCULAR VOLUME 90 FL (80-99); MONOCYTES % (AUTO) 8.2 % (1.0-10.0); NEUTROPHILS % (AUTO) 51.6 % (45.0-75.0); PLATELET COUNT 156 K/UL (150-450); RED BLOOD COUNT 3.74 M/UL (4.70-6.10); RED CELL DISTRIBUTION WIDTH 13.4 % (11.6-14.8); WHITE BLOOD COUNT 5.6 K/UL (4.8-10.8)
--- NOTE | 2019-03-25 08:41 | Nephrology Progress Note ---
Assessment/Plan Plan ESRD - TTS OD - "Rat Poison" m/p not dicumarol. INR flat. Subjective Subjective No new c/o Objective Objective Last 24 Hour Vital Signs Date Time Temp Pulse Resp B/P (MAP) Pulse Ox O2 Delivery O2 Flow Rate FiO2 03/25/19 04:00 72 03/25/19 04:00 98.5 72 20 160/68 (98) 98 03/25/19 00:00 97.6 73 20 157/79 (105) 98 03/25/19 00:00 73 03/24/19 21:00 Room Air 03/24/19 20:00 98.2 89 20 158/73 (101) 96 03/24/19 20:00 89 03/24/19 16:00 73 03/24/19 16:00 98.1 72 20 132/71 (91) 95 03/24/19 12:00 98.5 76 20 129/69 (89) 95 03/24/19 12:00 73 03/24/19 09:08 71 130/62 03/24/19 09:00 Room Air Intake and Output 03/24/19 03/25/19 19:00 07:00 Intake Total 240 ml 200 ml Balance 240 ml 200 ml Intake Oral 240 ml 200 ml # Voids 1 2 # Bowel Movements 1 Laboratory Tests 03/24/19 16:41: White Blood Count 6.1, Red Blood Count 3.59L, Hemoglobin 10.2L, Hematocrit 31.9L , Mean Corpuscular Volume 89, Mean Corpuscular Hemoglobin 28.5, Mean Corpuscular Hemoglobin Concent 32.2, Red Cell Distribution Width 13.0, Platelet Count 156, Mean Platelet Volume 6.5, Neutrophils (%) (Auto) , Lymphocytes (%) ( Auto) , Monocytes (%) (Auto) , Eosinophils (%) (Auto) , Basophils (%) (Auto) , Differential Total Cells Counted 100, Neutrophils % (Manual) 66, Lymphocytes % ( Manual) 24, Monocytes % (Manual) 5, Eosinophils % (Manual) 5H, Basophils % ( Manual) 0, Band Neutrophils 0, Platelet Estimate Adequate, Platelet Morphology Normal, Red Blood Cell Morphology Normal, Sodium Level 131L, Potassium Level 6.4 *H, Chloride Level 97L, Carbon Dioxide Level 22, Anion Gap 12, Blood Urea Nitrogen 101H, Creatinine 10.8H, Estimat Glomerular Filtration Rate 4.9, Glucose Level 136H, Calcium Level 7.3L 03/24/19 19:05: Sodium Level 133L, Potassium Level 4.2, Chloride Level 99, Carbon Dioxide Level 28, Anion Gap 7, Blood Urea Nitrogen 57H, Creatinine 6.0H, Estimat Glomerular Filtration Rate 9.7, Glucose Level 99, Calcium Level 9.0# 03/25/19 08:11: White Blood Count [Pending], Red Blood Count [Pending], Hemoglobin [Pending], Hematocrit [Pending], Mean Corpuscular Volume [Pending], Mean Corpuscular Hemoglobin [Pending], Mean Corpuscular Hemoglobin Concent [Pending], Red Cell Distribution Width [Pending], Platelet Count [Pending], Mean Platelet Volume [ Pending], Neutrophils (%) (Auto) [Pending], Lymphocytes (%) (Auto) [Pending], Monocytes (%) (Auto) [Pending], Eosinophils (%) (Auto) [Pending], Basophils (%) (Auto) [Pending], Sodium Level [Pending], Potassium Level [Pending], Chloride Level [Pending], Carbon Dioxide Level [Pending], Blood Urea Nitrogen [Pending], Creatinine [Pending], Estimat Glomerular Filtration Rate [Pending], Glucose Level [Pending], Calcium Level [Pending], Prothrombin Time [Pending], Prothromb Time International Ratio [Pending] Height (Feet): 5 Height (Inches): 5.00 Weight (Pounds): 164 Objective CV RR Lungs CTA Abd SNT. BS + E No CCE Jessica Onofre MD Mar 25, 2019 08:41
[2019-03-25 08:49] LABS: ANION GAP 8 mmol/L (5-15); BLOOD UREA NITROGEN 68 mg/dL (7-18); CALCIUM 8.3 MG/DL (8.5-10.1); CARBON DIOXIDE 27 MMOL/L (21-32); CHLORIDE 99 MMOL/L (98-107); POTASSIUM 4.9 MMOL/L (3.5-5.1); SODIUM 134 MMOL/L (136-145)
[2019-03-25 08:55] LABS: INR 0.9 (0.9-1.1)
[2019-03-25] MEDS: Heparin 5000 units/ml inj SUBQ SCH (09:19)
--- NOTE | 2019-03-25 11:35 | General Progress Note ---
Assessment/Plan Assessment/Plan: Drug overdose - apparently took rat poison Suicidal ideation Hypertension Diabetes Chronic renal failure on hemodialysis PLAN care noted HD monitor for change +psych clearance placement confirm HD on dc impression, plan, and exam edited and reviewed in detail care discussed with RN Subjective Allergies: Coded Allergies: No Known Allergies (Unverified , 03/22/19) Subjective care noted and reviewed no distress d/w complex case managerspa assistant manager found Objective Last 24 Hour Vital Signs Date Time Temp Pulse Resp B/P (MAP) Pulse Ox O2 Delivery O2 Flow Rate FiO2 03/25/19 09:13 72 129/58 03/25/19 08:00 97.3 72 17 129/58 (81) 96 03/25/19 04:00 72 03/25/19 04:00 98.5 72 20 160/68 (98) 98 03/25/19 00:00 97.6 73 20 157/79 (105) 98 03/25/19 00:00 73 03/24/19 21:00 Room Air 03/24/19 20:00 98.2 89 20 158/73 (101) 96 03/24/19 20:00 89 03/24/19 16:00 73 03/24/19 16:00 98.1 72 20 132/71 (91) 95 03/24/19 12:00 98.5 76 20 129/69 (89) 95 03/24/19 12:00 73 Intake and Output 03/24/19 03/25/19 19:00 07:00 Intake Total 240 ml 200 ml Balance 240 ml 200 ml Intake Oral 240 ml 200 ml # Voids 1 2 # Bowel Movements 1 Laboratory Tests 03/24/19 16:41: White Blood Count 6.1, Red Blood Count 3.59L, Hemoglobin 10.2L, Hematocrit 31.9L , Mean Corpuscular Volume 89, Mean Corpuscular Hemoglobin 28.5, Mean Corpuscular Hemoglobin Concent 32.2, Red Cell Distribution Width 13.0, Platelet Count 156, Mean Platelet Volume 6.5, Neutrophils (%) (Auto) , Lymphocytes (%) ( Auto) , Monocytes (%) (Auto) , Eosinophils (%) (Auto) , Basophils (%) (Auto) , Differential Total Cells Counted 100, Neutrophils % (Manual) 66, Lymphocytes % ( Manual) 24, Monocytes % (Manual) 5, Eosinophils % (Manual) 5H, Basophils % ( Manual) 0, Band Neutrophils 0, Platelet Estimate Adequate, Platelet Morphology Normal, Red Blood Cell Morphology Normal, Sodium Level 131L, Potassium Level 6.4 *H, Chloride Level 97L, Carbon Dioxide Level 22, Anion Gap 12, Blood Urea Nitrogen 101H, Creatinine 10.8H, Estimat Glomerular Filtration Rate 4.9, Glucose Level 136H, Calcium Level 7.3L 03/24/19 19:05: Sodium Level 133L, Potassium Level 4.2, Chloride Level 99, Carbon Dioxide Level 28, Anion Gap 7, Blood Urea Nitrogen 57H, Creatinine 6.0H, Estimat Glomerular Filtration Rate 9.7, Glucose Level 99, Calcium Level 9.0# 03/25/19 08:11: White Blood Count 5.6, Red Blood Count 3.74L, Hemoglobin 10.9L, Hematocrit 33.7L , Mean Corpuscular Volume 90, Mean Corpuscular Hemoglobin 29.2, Mean Corpuscular Hemoglobin Concent 32.5, Red Cell Distribution Width 13.4, Platelet Count 156, Mean Platelet Volume 6.5, Neutrophils (%) (Auto) 51.6, Lymphocytes (% ) (Auto) 31.6, Monocytes (%) (Auto) 8.2, Eosinophils (%) (Auto) 7.7H, Basophils (%) (Auto) 0.9, Sodium Level 134L, Potassium Level 4.9, Chloride Level 99, Carbon Dioxide Level 27, Anion Gap 8, Blood Urea Nitrogen 68H, Creatinine 8.0H, Estimat Glomerular Filtration Rate 7.0, Glucose Level 83, Calcium Level 8.3L, Prothrombin Time 10.0, Prothromb Time International Ratio 0.9 Height (Feet): 5 Height (Inches): 5.00 Weight (Pounds): 163 Objective WDWN NAD clear breath sounds bilaterally without rhonchi or wheeze [id number] without MRG NABS nontender no HSM no CCE nonfocal Daljit Umanzor MD Mar 25, 2019 11:35
[2019-03-25 12:00] VITALS: BP 146/73
--- NOTE | 2019-03-26 01:15 | Progress Note ---
DATE: 03/25/2019 SUBJECTIVE: The patient is presenting with depressed mood, anhedonia, worthlessness, hopelessness, decreased energy, and insomnia. MENTAL STATUS EXAMINATION: Alert and oriented x4. Mood is depressed. Affect is constricted, congruent with mood. Thought process is linear. Thought content, no suicidal or homicidal ideation. Insight and judgment is fair. ASSESSMENT: 1. Major depressive disorder. 2. Anxiety disorder. PLAN: 1. The patient will be continued with current medication. 2. Provide the patient with reality orientation and supportive therapy. 3. The patient is not an imminent danger to self or others. Sanford Garcia M.D. DR: ROMANA JOB#: [id number] CC:
--- NOTE | 2019-03-26 07:58 | Discharge Summary ---
Discharge Summary Discharge Summary _ DATE OF ADMISSION: 03/22/2019 DATE OF DISCHARGE: 03/25/2019 DISCHARGED BY: Dr. Cosme Umanzor CONSULTANTS: Dr. Sanford Onofre BRIEF HOSPITAL COURSE: Patient is a 58-year-old male, with history of hypertension, diabetes, chronic renal failure, on hemodialysis. He presented with chief complaint of suicidal ideation and overdose. He felt depressed, and 10 hours prior to arrival, he took 20 tablets of right poison. He denied any alcohol or drug use. Denied any nausea or vomiting. Denied any bleeding. No pain. On evaluation at the ED, blood pressure was 196/97. The rest of her vital signs were stable. Blood work did not show any leukocytosis. Creatinine was elevated to 9.8. BUN 89. Potassium 5.0. LFTs were normal. Urine toxicology screen was negative. INR 1.0. PT 10 4. Blood pressure was initially elevated , he was given hydralazine and clonidine. Blood pressure improved. He was then admitted for uncontrolled hypertension and overdose. He was admitted to telemetry. He was provided a sitter. He was given activated charcoal. Senior C Software Developer was consulted. Patient missed hemodialysis. He was continued on inpatient hemodialysis. Psychiatric evaluation was done. Depression was situational due to recent stress with his . He was started on Lexapro 10 mg every morning and Seroquel 25 mg q 6 hours. Patient was assessed to be not an imminent danger to self or others. Patient overdosed on a rat poison. Coagulation was monitored. INR trend was flat. Most probably not dicumarol. He was cleared by psychiatry. Social service was consulted to aid with discharge. Dialysis appointment was confirmed at [facility] dialysis. He signed a homeless discharge. FINAL DIAGNOSES: Drug overdose, apparently took a rat poison Suicidal ideation Hypertension Diabetes Chronic renal failure on hemodialysis Major depressive disorder Anxiety disorder DISPOSITION: Patient was discharged home. DISCHARGE INSTRUCTIONS: Follow-up in a week. I have been assigned to complete a discharge summary on this account, I was not involved with the patient's management. Alda Abbott NP Mar 26, 2019 07:58
[2019-03-26] MEDS ORDERED: Heparin Sod 1000 units/ml 10ml IV PRN (08:45)
== END 2019-03-25 15:00 | DRG 816 ==
LOC: EDBD 23:59 → EMR 03-22 00:27 → EDBEDREQ 03-22 05:00 → 2E 03-22 05:32 → EDBEDREQ 03-22 11:39 → 2E 03-22 12:25
PROC: 5A1D70Z Performance of Urinary Filtration, Intermittent, Less than 6 Hours Per Day (ICD-10-PCS; principal; 2019-03-22)
DX: T60.4X2A Toxic effect of rodenticides, intentional self-harm, initial encounter (principal); E11.22 Type 2 diabetes mellitus with diabetic chronic kidney disease; I13.11 Hypertensive heart and chronic kidney disease without heart failure, with stage 5 chronic kidney disease, or end stage renal disease; N18.6 End stage renal disease; F32.1 Major depressive disorder, single episode, moderate; Y92.009 Unspecified place in unspecified non-institutional (private) residence as the place of occurrence of the external cause; T14.91XA Suicide attempt, initial encounter; E11.9 Type 2 diabetes mellitus without complications; Z99.2 Dependence on renal dialysis
CPT/HCPCS: 36415; 71045; 80048; 80053; 80307; 80329; 81003; 82962; 85007; 85025; 85610; 86705; 86709; 86803; 87081; 87340; 96374; 99285; J1815